=== PATIENT | male | born 1970 | race Caucasian/White ===

== ENCOUNTER 2018-12-08 09:24 | Outpatient (CLI) | payer OTHER ==
--- NOTE | 2018-12-08 10:52 | ULT ---
ULTRASOUND LEFT UPPER QUADRANT: CLINICAL HISTORY: Fatigue, history of rheumatoid arthritis. No prior imaging comparison FINDINGS: Spleen measures 12.7 x 8.4 x 7.2 cm. There is no discrete splenic lesion. No perisplenic fl uid evident. Imaged portions of left kidney are grossly unremarkable. IMPRESSION: Borderline-sized spleen, 12.7 cm in length. No focal splenic lesion. Transcribed Date/Time: 12/08/2018 11:11 AM
== END 2018-12-08 09:25 | disposition home or self-care (01) ==
LOC: ULT 09:24
PROVIDERS: ATTEND Internal Medicine Rheumatology
DX: M06.00 Rheumatoid arthritis without rheumatoid factor, unspecified site (principal); R53.83 Other fatigue; R94.5 Abnormal results of liver function studies
CPT/HCPCS: 76705

== ENCOUNTER 2019-02-28 08:11 | Outpatient (CLI) | payer OTHER ==
--- NOTE | 2019-02-28 09:29 | RAD ---
LUMBAR SPINE THREE VIEWS: HISTORY: Degenerative disk disease. TECHNIQUE: Upright neutral, flexion, and extension views of the lumbar spine are performed. FINDINGS: There is narrowing and sclerosis at the L5-S1 with some generalized disk osteophytosis and facet arth rosis. No significant abnormal translation between flexion and extension. No acute fracture. IMPRESSION: 1. Lumbar spondylosis, most marked at L5-S1. 2. No abnormal translation. POS: OFF
--- NOTE | 2019-02-28 09:42 | MRI ---
MRI LUMBAR SPINE WITHOUT CONTRAST: HISTORY: Pain;disc degenerative disease of lumbar spine. COMPARISON: None. FINDINGS: Conus medullaris is normal in morphology and terminates at the L1 level. Endplate degenerative marrow signal alteration of L5-S1 present, compatible with Modic type I change. 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 Incidental note of possible parapelvic cyst formation and/or mildly prominent calyces of the kidneys. L1-2: No significant stenosis L2-3: Mild to moderate central canal stenosis due to disc bulge and congenital narrowing of the vert ebral canal. No high-grade foraminal stenosis. L3-4: Moderate central canal stenosis due to broad-based central disc protrusion, superimposed upon mild disc osteophyte complex and combined with congenital narrowing of the vertebral canal. No high-grade foraminal stenosis. L4-5: Mild narrowing of central canal due to concentric disc bulge. No high-grade foraminal stenosi s L5-S1: Prominent disc degenerative disease with disc space narrowing and endplate irregularity. Ret rolisthesis of L5 on S1 is present. Severe left foraminal stenosis impinging the left L5 nerve root and impinging the traversing left S1 nerve root noted. IMPRESSION: Prominent disc degeneration at L5-S1 with severe left foraminal stenosis and associated nerve root co mpromise. Recommend surgical consultation. Transcribed Date/Time: 02/28/2019 10:26 AM
== END 2019-02-28 08:12 | disposition home or self-care (01) ==
LOC: BICMRI 08:11
PROVIDERS: ATTEND Family Medicine
DX: M51.27 Other intervertebral disc displacement, lumbosacral region (principal); M51.36 Other intervertebral disc degeneration, lumbar region; R20.9 Unspecified disturbances of skin sensation; M47.817 Spondylosis without myelopathy or radiculopathy, lumbosacral region; M48.061 Spinal stenosis, lumbar region without neurogenic claudication
CPT/HCPCS: 72100; 72148

== ENCOUNTER 2019-04-18 11:37 | Outpatient (CLI) | payer BC ==
--- NOTE | 2019-04-18 12:09 | RAD ---
RIGHT HAND 3 VIEWS: Date: 04/18/19 HISTORY: Rheumatoid arthritis. FINDINGS: The bony mineralization appears normal. No erosive bony change is seen. There is some minimal osteoph ytic change at the metacarpophalangeal joint of the index and middle fingers, and osteoarthritic roasdo ges of the thumb. IMPRESSION: Very mild osteoarthritic change. No definitive features or rheumatoid. POS: TPC
--- NOTE | 2019-04-18 12:10 | RAD ---
LEFT HAND 3 VIEWS: Date: 04/18/19 HISTORY: Rheumatoid arthritis. FINDINGS: Bony mineralization appears normal. Joint spaces appear well preserved. Minimal osteoarthritic change is seen of the metacarpophalangeal joints. IMPRESSION: No plain film evidence for rheumatoid arthritis. POS: TPC
== END 2019-04-18 11:38 | disposition home or self-care (01) ==
LOC: BICRAD 11:37
DX: M19.041 Primary osteoarthritis, right hand (principal)

== ENCOUNTER 2020-12-01 15:41 | Outpatient (CLI) | payer BC | END 2020-12-01 15:42 | disposition home or self-care (01) | LOC: BICRAD 15:41 | PROVIDERS: ATTEND Family Medicine | DX: R22.41 Localized swelling, mass and lump, right lower limb (principal) ==

== ENCOUNTER 2022-10-28 13:16 | Outpatient (CLI) | payer BC | END 2022-10-28 13:17 | disposition home or self-care (01) | LOC: SCSMRI 13:16 | PROVIDERS: ATTEND Family Medicine | DX: M54.42 Lumbago with sciatica, left side (principal); M51.37 Other intervertebral disc degeneration, lumbosacral region; M48.061 Spinal stenosis, lumbar region without neurogenic claudication; M47.26 Other spondylosis with radiculopathy, lumbar region | CPT/HCPCS: 72158; 82565 ==

== ENCOUNTER 2022-10-29 14:48 | Outpatient (CLI) | payer BC | END 2022-10-29 14:49 | disposition home or self-care (01) | LOC: TBSIIMAG 14:48 | PROVIDERS: ATTEND Neurological Surgery | DX: M48.062 Spinal stenosis, lumbar region with neurogenic claudication (principal); M47.816 Spondylosis without myelopathy or radiculopathy, lumbar region; M47.817 Spondylosis without myelopathy or radiculopathy, lumbosacral region | CPT/HCPCS: 72120 ==

== ENCOUNTER 2023-01-18 06:27 | Observation (INO) | payer BC ==
[2023-01-17 09:49] VITALS: BMI 32.3
[~2023-01-18 06:27] MED LIST: Fentanyl 250 MCG/5 ML VIAL ONE; HYDROmorphone 0.5 MG/0.5 ML SYRINGE ONE; SUGAMMADEX SODIUM 200 MG/2 ML VIAL ONE
[2023-01-18] MEDS ORDERED: Vancomycin 1 GM VIAL ONE (06:39)
[2023-01-18] MEDS ORDERED: Bupivacaine HCl 0.5%/Epinephrine 1:200,000/PF 30 ml Vial ONE (06:39)
[2023-01-18] MEDS ORDERED: Thrombin 5000 UNITS/5 ML VIAL ONE (06:39)
[2023-01-18] MEDS ORDERED: Sodium Chloride 0.9% 100 ML ONE ×2 (06:59→13:17)
[2023-01-18] MEDS ORDERED: CEFAZOLIN 2 GM VIAL ONE ×2 (06:59→13:17)
[2023-01-18] MEDS ORDERED: Midazolam HCl 2 mg/2 ml Vial ONE (07:00)
[2023-01-18] MEDS ORDERED: Rocuronium Bromide 10 MG/ML (10ML VIAL) ONE (07:15)
[2023-01-18] MEDS ORDERED: Dexamethasone 20 MG/5 ML VIAL ONE (07:15)
[2023-01-18] MEDS ORDERED: PHENYLEPHRINE-NS 100 MCG/ML 10 ML SYRINGE ONE ×2 (07:15→09:56)
[2023-01-18] MEDS ORDERED: PROPOFOL 200 MG/20 ML VIAL ONE (07:15)
[2023-01-18] MEDS ORDERED: Lidocaine 1% PF 5 ML VIAL ONE (07:15)
[2023-01-18] MEDS ORDERED: Glycopyrrolate 0.2 MG/ML 5 ML SYRINGE ONE (07:15)
[2023-01-18] MEDS ORDERED: ePHEDrine Sulfate 50 MG/10 ML VIAL ONE (07:15)
[2023-01-18] MEDS ORDERED: Morphine 2 MG/ML VIAL SLOW IVP PRN (12:03)
[2023-01-18] MEDS ORDERED: Bisacodyl 10 MG SUPP PR PRN (12:03)
[2023-01-18] MEDS ORDERED: HYDROcodone/Acetaminophen 10/325 mg Tablet PO PRN (12:03)
[2023-01-18] MEDS ORDERED: HYDROcodone/Acetaminophen 7.5/325 mg Tablet PO PRN (12:03)
[2023-01-18] MEDS ORDERED: Mag-Al 1200 mg/1200 mg/30 ML UDCUP PO PRN (12:03)
[2023-01-18] MEDS ORDERED: Prochlorperazine 10 MG/2 ML VIAL IM PRN (12:03)
[2023-01-18] MEDS ORDERED: Ondansetron PF 4 MG/2 ML Vial IVP PRN (12:03)
[2023-01-18] MEDS ORDERED: tiZANidine HCl 4 MG TAB PO PRN (12:04)
[2023-01-18] MEDS ORDERED: fentaNYL 50 mcg/mL 1 mL Vial ONE ×4 (12:43→14:52)
[2023-01-18] MEDS ORDERED: Tamsulosin HCl 0.4 MG CAP PO SCH (12:45)
[2023-01-18] MEDS ORDERED: Tamsulosin HCl 0.4 MG CAP ONE (13:11)
[2023-01-18] MEDS: CEFAZOLIN 2 GM in Sodium Chloride 0.9% 100 ML IVPB SCH ×2 (13:18→20:34)
[2023-01-18] MEDS: Sodium Chloride 0.9% 1,000 ML IV SCH ×2 (14:41→18:14)
[2023-01-18] MEDS: Acetaminophen/Codeine 30-300mg Tablet PO PRN ×2 (16:14→23:35)
[2023-01-18] MEDS ORDERED: Sodium Chloride 0.9% 500 ML IV SCH (16:15)
[2023-01-18 18:43] LABS: #Monocytes 0.1 thou/uL (0.11-0.59); %Basophils 0.1 % (0.0-1.0); %Lymphocytes 9.5 % (21.0-51.0); %Monocytes 1.6 % (0.0-10.0); %Neutrophils 88.4 % (42.0-75.0); Hemoglobin 11.1 g/dL (14.0-18.0); Mean Corpuscular HGB CONC 34.8 g/dL (32.0-36.0); Mean Corpuscular Hemoglobin 32.3 pg (27.0-31.0); Mean Corpuscular Volume 92.7 fl (78.0-98.0); Red Blood Cell (RBC) Count 3.44 mill/uL (4.70-6.10); White Blood Cell (WBC) Count 7.9 10x3/uL (4.8-10.8)
[2023-01-18 18:44] LABS: Platelet Count 114 10x3/uL (130-400)
[2023-01-18 19:25] VITALS: TEMP 98
[2023-01-18] MEDS ORDERED: Sertraline 100 MG TAB PO SCH (21:00)
[2023-01-18] MEDS ORDERED: Rosuvastatin 10 MG TAB PO SCH (21:00)
[2023-01-18] MEDS ORDERED: rOPINIRole HCl 0.5 MG TAB PO SCH (21:15)
[2023-01-18] MEDS ORDERED: rOPINIRole HCl 2 MG TAB PO SCH (21:15)
[2023-01-18] MEDS ORDERED: Dexamethasone 4 mg/ml Vial SLOW IVP SCH (23:59)
[2023-01-19] MEDS: Sodium Chloride 0.9% 1,000 ML IV SCH ×4 (02:21→11:41)
[2023-01-19] MEDS: Acetaminophen/Codeine 30-300mg Tablet PO PRN ×3 (04:56→15:31)
[2023-01-19] MEDS ORDERED: Tamsulosin HCl 0.4 MG CAP PO SCH (06:00)
[2023-01-19] MEDS: rOPINIRole HCl 0.5 MG TAB PO SCH ×2 (08:12→15:31)
[2023-01-19] MEDS: rOPINIRole HCl 2 MG TAB PO SCH ×2 (08:13→15:31)
[2023-01-19 08:58] LABS: #Monocytes 0.3 thou/uL (0.11-0.59); #Neutrophils 9.8 thou/uL (1.40-6.50); %Lymphocytes 7.5 % (21.0-51.0); %Monocytes 2.6 % (0.0-10.0); %Neutrophils 89.6 % (42.0-75.0); Mean Corpuscular HGB CONC 33.8 g/dL (32.0-36.0); Mean Corpuscular Hemoglobin 31.6 pg (27.0-31.0); Mean Corpuscular Volume 93.4 fl (78.0-98.0); Mean Platelet Volume 10.8 fL (7.4-10.4); Platelet Count 119 10x3/uL (130-400); RBC Distribution Width 13.2 % (11.5-14.5); Red Blood Cell (RBC) Count 3.48 mill/uL (4.70-6.10); White Blood Cell (WBC) Count 10.9 10x3/uL (4.8-10.8)
[2023-01-19 09:24] LABS: Anion Gap 16 mmol/L (10-20); BUN (Urea Nitrogen) 21 mg/dL (8.4-25.7); Calc. Creatinine Clearance 102 mL/min (70-130); Carbon Dioxide 20 mmol/L (22-29); Estimated GFR 71; Glucose 163 mg/dL (70-105); Potassium 4.3 mmol/L (3.5-5.1); Sodium 137 mmol/L (136-145)
[2023-01-19 10:12] LABS: Chloride 105 mmol/L (98-107)
[2023-01-19 17:24] VITALS: BP 119/69
== END 2023-01-19 17:34 ==
LOC: SDC 06:27 → T4-A 15:31
PROVIDERS: ADMIT Neurological Surgery; ATTEND Neurological Surgery
PROC: 01NB0ZZ Release Lumbar Nerve, Open Approach (ICD-10-PCS; principal; 2023-01-19)
DX: M48.062 Spinal stenosis, lumbar region with neurogenic claudication (principal); M51.17 Intervertebral disc disorders with radiculopathy, lumbosacral region; D64.9 Anemia, unspecified; M19.90 Unspecified osteoarthritis, unspecified site; M06.9 Rheumatoid arthritis, unspecified; I10 Essential (primary) hypertension; Z91.018 Allergy to other foods; Z79.899 Other long term (current) drug therapy
CPT/HCPCS: 36415; 80048; 85025; J1100; J1170; J2250; J2704; J3010; J3370; J3490; J7030; J7050